=== PATIENT | female | born 1985 | race Caucasian/White ===

== ENCOUNTER 2018-02-10 05:26 | Inpatient (IN) | payer BC ==
[~2018-02-10] VITALS: Ht 172.7 cm; Wt 104.5 kg
[2018-02-10] VITALS (57 sets, daily range): BP systolic 97–142; BP diastolic 55–84; PULSE 85–134; TEMP 97.4–100.8
[2018-02-10] MEDS ORDERED: ZYRTEC 10MG10 MG PO (05:59)
[2018-02-10] MEDS ORDERED: PRENATAL MVI PO (05:59)
[2018-02-10] MEDS ORDERED: CALCIUM CARBON650 M2 PO (06:00)
[2018-02-10 07:38] LABS: MEAN CELL VOLUME 88 fl (80.0-100.0); MEAN CORPUSCULAR HEMOGLOBIN 31 pg (27.0-31.0); MEAN CORPUSCULAR HGB CONC 35 g/dl (33.0-37.0); MEAN PLATELET VOLUME 11.2 fl (7.4-10.4); PLATELET COUNT 155 K/mm3 (130-400); RED BLOOD COUNT 3.88 M/mm3 (4.10-5.30)
[2018-02-10 07:41] LABS: HEMATOCRIT 34.2 % (37.0-47.0)
[2018-02-10 07:58] LABS: BAND 6 % (0-10); LYMPHOCYTE 38 % (20.0-51.0); NEUTROPHILS 52 % (42.0-75.2)
[2018-02-10 07:59] LABS: ANISOCYTOSIS 1+; PLATELET ESTIMATE NORMAL (NORMAL)
[2018-02-10 08:00] LABS: TOXIC GRANULATION PRESENT
[2018-02-11 00:15] VITALS: TEMP 98
[2018-02-11 07:50] VITALS: BP 107/59; PULSE 96; TEMP 97.6
[2018-02-11] MEDS ORDERED: IBU800 M1 PO (11:23)
[2018-02-11] MEDS ORDERED: PERCOCET 325 MG1 TA2 PO (11:24)
[2018-02-11 12:00] VITALS: BP 128/74; PULSE 112; TEMP 97.8
[2018-02-11 13:11] LABS: HEMATOCRIT 22.9 % (37.0-47.0); HEMOGLOBIN 7.6 g/dl (12.5-16.0)
[2018-02-11 17:35] VITALS: BP 127/68; PULSE 109; TEMP 97.9
[2018-02-11 20:40] VITALS: BP 132/67; PULSE 108; TEMP 98.3
[2018-02-12 09:43] VITALS: BP 116/68; PULSE 101; TEMP 98.3
== END 2018-02-12 11:26 | disposition home or self-care (01) | DRG 775 ==
LOC: LDRO 05:26 → LDR 07:09 → OB 21:30
PROVIDERS: Obstetrics & Gynecology
PROC: 10D07Z6 Extraction of Products of Conception, Vacuum, Via Natural or Artificial Opening (ICD-10-PCS; principal; 2018-02-10)
PROC: 0KQM0ZZ Repair Perineum Muscle, Open Approach (ICD-10-PCS; 2018-02-10)
DX: O76 Abnormality in fetal heart rate and rhythm complicating labor and delivery (principal); O70.1 Second degree perineal laceration during delivery; O99.824 Streptococcus B carrier state complicating childbirth; O62.2 Other uterine inertia; Z37.0 Single live birth; Z3A.40 40 weeks gestation of pregnancy
CPT/HCPCS: J0690; J1200; J2210; J2590; J2795; J7120

== ENCOUNTER 2021-08-23 02:17 | Inpatient (IN) | payer BC ==
[2021-08-23] VITALS (37 sets, daily range): BP systolic 105–144; BP diastolic 62–92; PULSE 71–103; TEMP 97.7–98.4
[~2021-08-23] VITALS: Ht 172.7 cm; Wt 113.6 kg
[~2021-08-23 02:17] MED LIST: CALCIUM CARBON650 M2 PO; IBU800 M1 PO; PERCOCET 325 MG1 TA2 PO; PRENATAL MVI PO; ZYRTEC 10MG10 MG PO
[2021-08-23] MEDS ORDERED: CALCIUM-500 5001 CTB PO (03:37)
--- NOTE | 2021-08-23 04:20 | NUR ---
18G IV STARTED BY MELI HUERTA IN PATIENT'S RIGHT WRIST. LABS COLLECTED AT THIS TIME
[2021-08-23 04:31] LABS: BASO % 0.1 % (0.0-2.0); EOS # 0.2 K/mm3 (0.0-0.7); EOS % 3.2 % (0.0-4.0); GRAN # 4.6 K/mm3 (1.4-6.5); GRAN % 67.2 % (42.2-75.2); HEMOGLOBIN 11.7 g/dl (12.5-16.0); LYMPH # 1.4 K/mm3 (1.2-3.4); LYMPH % 20.8 % (20.0-51.0); MEAN CELL VOLUME 82 fl (80.0-100.0); MEAN CORPUSCULAR HEMOGLOBIN 28 pg (27-31); MEAN CORPUSCULAR HGB CONC 34 g/dl (33.0-37.0); MEAN PLATELET VOLUME 11.9 fl (7.4-10.4); MONO # 0.6 K/mm3 (0.1-0.6); MONO % 8.4 % (1.7-9.3); PLATELET COUNT 155 K/mm3 (130-400); RED BLOOD COUNT 4.22 M/mm3 (4.10-5.30); REDCELL DISTRIBUTION WIDTH-CV 14.4 % (11.5-14.5)
[2021-08-23 04:33] LABS: HEMATOCRIT 34.6 % (37.0-47.0)
--- NOTE | 2021-08-23 05:20 | NUR ---
EFM AND TOCO REMOVED TO ALLOW PT TO AMBULATE AND SIT ON BIRTHING BALL, NO SIGNS OF DISTRESS. PT DENIES FURTHER NEEDS AT THIS TIME
--- NOTE | 2021-08-23 05:50 | NUR ---
PT BACK TO BED FOLLOWING AMBULATION AND USING BIRTHING BALL. EFM AND TOCO REAPPLIED. NO SIGNS OF DISTRESS. PT DENIES FURTHER NEEDS AT THIS TIME.
--- NOTE | 2021-08-23 06:15 | NUR ---
BEDSIDE REPORT GIVEN TO SHAMAR RN AND CARE WAS TRANFSERRED AT THIS TIME.
--- NOTE | 2021-08-23 06:15 | NUR ---
Bedside report received from Dayana HUERTA. Patient resting in bed. 0620: Patient off monitors to ambulate and plan of care discussed.
--- NOTE | 2021-08-23 07:05 | NUR ---
Patient resting in bed and back on the monitors. 0710: SVE-3/60/-2 and clear fluid noted. Dr. Hernadez called and updated. See physician notification. 0735: This RN at bedside discussing plan and patietn agrees to starting pitocin. 0738: Plan of pitocin augmentation discussed and patient verbalizes understanding. Pitocin started at 2mU per protocol.
--- NOTE | 2021-08-23 08:00 | NUR ---
Patient requests epidural and Zandra NURSE PRACTITIONER PER DIEM called and notified. 0835: Patient sitting up for epidural and Zandra NURSE PRACTITIONER PER DIEM at bedside. 0842: Single shot given and patient tolerates well. 0850: Patient repositioned and given safety instructions/discussing plan of care. 0930: FHR baseline 135bpm and sublte late decelerations noted. 0935: Roca catheter placed and patient tolerates well. SVE 4-5/80/-2 and patient right lateral with left leg resting in stirrup. 0955: Difficulty tracing contractions and this RN at bedside adjusting monitor. FHR tracing early/late decelerations. 1000: Patient left lateral and right leg resting in stirrup. LR bolus started at this time. 1010: This RN at bedside and palpating contractions and readjusting TOCO. FHR baseline 135bpm with recurrent late decelerations decreasing to 100-120bpm. SVE 5-6/90/-2 amd patient wedged right. 1020: FHR continues to have recurrent late decelerations with minimal variability. This RN at bedside and patient wedged left, LR bolus continues. 1024: Pitocin turned down to 4mU/hr. Dr. Hernadez updated-see physician notification. 1030: Pitocin off at this time due to physican orders and patient updated with plan of care. Patient wedged right. 1045: Recurrent late decelerations continue. Patient wedged left. Moderate variability returning to FHR. 1025: Subtle late decelerations noted. Patietient right lateral with peanut ball in place. 1140: Patient in faustino position. 1200: Minimal variability noted. 1210: SVE-8/90/-1 1240: Patient far right lateral with left leg resting off bed. Difficulty tracing FHR and this RN at bedside adjusting monitors. 1255: Patient far left lateral with right leg resting off bed. This RN at bedside adjusting monitors. 1310: SVE-10/100/-1
--- NOTE | 2021-08-23 13:25 | NUR ---
Roca catheter removed and patient tolerates well. Pushing instructions discussed. 1330: Patient pushes with contraction and good maternal effort and progress noted. 1334: Dr. Hernadez called for delivery Patient set up for vaginal delivery. 1342: Dr. Hernadez at bedside. 1347: Patient pushes with contractions. 1352: Spontaneous vaginal delivery of viable male-head followed by body. Infant bulb syringed and to patients abdomen and L.Jose Alejandro RN assumes care of . Cord clamped x2 and cut by physician and cord blood obtained. 1355: Spontaneous delivery of placenta and pitocin bolus started per protocol. Fundal massage done/firm/bleeding WNL Physician repairs laceration. Fundal massage done/bleeding WNL/firm Patient repositioned, ice pack to perineum, plan of care discussed.
[2021-08-24 02:00] VITALS: BP 125/64; PULSE 84; TEMP 97.6
[2021-08-24 06:33] LABS: HEMOGLOBIN 10.2 g/dl (12.5-16.0)
[2021-08-24 06:38] LABS: HEMATOCRIT 31.4 % (37.0-47.0)
[2021-08-24] MEDS ORDERED: MOTRIN 800800 MG/TAB PO ×2 (06:41→09:05)
[2021-08-24 08:35] VITALS: BP 123/79; PULSE 78; TEMP 98.1
== END 2021-08-24 16:15 | disposition home or self-care (01) | DRG 807 ==
LOC: LDRO 02:17 → LDR 03:18 → OB 17:00
PROVIDERS: Obstetrics & Gynecology; ADMIT Obstetrics & Gynecology
PROC: 10E0XZZ Delivery of Products of Conception, External Approach (ICD-10-PCS; principal; 2021-08-23)
PROC: 0KQM0ZZ Repair Perineum Muscle, Open Approach (ICD-10-PCS; 2021-08-23)
DX: O99.824 Streptococcus B carrier state complicating childbirth (principal); Z37.0 Single live birth; O99.214 Obesity complicating childbirth; O70.1 Second degree perineal laceration during delivery; O76 Abnormality in fetal heart rate and rhythm complicating labor and delivery; Z20.822 Contact with and (suspected) exposure to COVID-19; Z3A.39 39 weeks gestation of pregnancy; Z23 Encounter for immunization
CPT/HCPCS: J0690; J2590; J2795; J7120